=== PATIENT | female | born 1960 | race American Indian/Alaskan Native ===

== ENCOUNTER 2016-07-21 09:48 | Outpatient (CLI) | payer OTHER ==
[2016-07-21 11:18] LABS: Blood Urea Nitrogen 18 mg/dL (7-17)
--- NOTE | 2016-07-21 13:28 | Magnetic Resonance Report ---
MRI of the abdomen with and without contrast. Procedure: A multiplanar multisequence study was performed with and without contrast. The liver is normal in size and configuration with no focal abnormalities. The spleen is small in size but otherwise unremarkable. The pancreas kidneys and adrenal glands are normal. The kidneys are normal in size and configuration with no evidence of few tiny renal cysts are noted. hydronephrosis. After contrast, there are no areas of abnormal enhancement. There are no abnormal fluid collections. No evidence of adenopathy in the retroperitoneum. Impression: No significant abnormalities. Tiny renal cysts are incidentally noted.
--- NOTE | 2016-07-21 13:33 | Magnetic Resonance Report ---
MRI of the pelvis with and without contrast. Procedure: A multiplanar multisequence study was performed with and without contrast. Findings: Susceptibility Artifacts are seen in the adnexal regions bilaterally. The uterus is normal in size and configuration. No pelvic masses or adenopathy is seen. The urinary bladder is unremarkable. No areas of abnormal contrast enhancement are seen. There are no abnormal fluid collections. No significant bony findings are seen. Impression: Negative study with technical limitations related to susceptibility artifacts in the adnexal regions bilaterally.
== END 2016-07-21 09:49 | disposition home or self-care (01) ==
LOC: MRI 09:48
PROVIDERS: ATTEND Internal Medicine
DX: N28.1 Cyst of kidney, acquired (principal); N13.30 Unspecified hydronephrosis
CPT/HCPCS: 36415; 72197; 74183; 82565; 84520; A9577